=== PATIENT | female | born 1995 | race Caucasian/White ===

== ENCOUNTER → 2019-11-20 | Outpatient (CLI) | payer BC, MEDICAID | LOC: LABNPT 15:43 | PROVIDERS: ATTEND Family Medicine | DX: Z34.90 Encounter for supervision of normal pregnancy, unspecified, unspecified trimester (principal) | CPT/HCPCS: 87088; 87491; 87591 ==

== ENCOUNTER 2019-11-30 09:59 | Emergency (ER) | payer BC, MEDICAID ==
[~2019-11-30] VITALS: Ht 157 cm; Wt 97.4 kg
--- OUTSIDE RECORDS SUMMARY | 2019-11-30 10:08 | XMS REPORT ---
Author Author Tana STACY Organization [facility] Address [address] [place] [address] Care Team Providers Care New Vehicle Sales Consultant Name Role Phone CATRACHITO STACY Unavailable PROBLEMS Type Condition ICD9-CM Code RPT49-GP Code Onset Dates Condition S tatus SNOMED Code Problem Rh negative status during in third tri mester, antepartum O09.893 Nov, Active Problem Body mass index (BMI) of 30.0 to 39.9 E66.9 Active 262212913 Problem Fibrocystic breast changes N60.19 Act leesa 10598584 Problem Obesity (BMI 35.0-39.9 without comorbidity) E66.9 16 Sep, 2014 Active 746760250 Problem Headache(784.0) R51 17 May, 2013 Active 2 5067717 Problem Anxiety F41.9 Active 18855904 Problem Depression, major, single episode, 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 Active 70958689 ALLERGIES Substance Reaction Event Type Date Status Tramadol HCl vomiting Drug Allergy Oct, Active Penicillin G Potassium hives Drug Allergy Oct, Activ e ENCOUNTERS Encounter Location Date Diagnosis [address] [address] Jan, [address] [address] Jan, Obesity (BMI 35.0-39.9 without comorbidi ty) E66.[address] [address] Jan, Obesity (BMI 35.0-39.9 without comorbidi ty) E66.[address] [address] Nov, Body mass index (BMI) of 30.0 to 39.[address] [address] Nov, Body mass index (BMI) of 30.0 to 39.9 E6 6.9 [facility] [address] [facility] [place] [address] Oct, Muscle ache M79.[address] [address] Sep, Body mass index (BMI) of 30.0 to 39.9 E6 6.9 ; Depression, major, single episode, 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 ; Fibrocystic breast changes N60.19 and Anxiety F41.[address] [address] Sep, [facility] [address] [facility] [id number] [address] [place] [phone] Aug, [facility] [address] [facility] [id number] [address] [place] [phone] Aug, [facility] [address] [facility] [id number] [address] [place] [phone] Jul, [facility] [address] [facility] [id number] [address] [place] [phone] Feb, IMMUNIZATIONS No Known Immunizations SOCIAL HISTORY Never Assessed REASON FOR VISIT congestion and drainage that started today.--DEISY Queen PLAN OF CARE Activity Details Follow Up prn Reason: VITAL SIGNS Height 5'3" in 2018-10-15 Weight 220 lbs 2018-10-15 Temperature 98.2 degrees Fahrenheit 2018-10-15 Heart Rate 94 bpm 2018-10-15 Respiratory Rate 20 2018-10-15 BMI 38.97 kg/m2 2018-10-15 Blood pressure systolic 150 mmHg 2018-10-15 Blood pressure diastolic 100 mmHg 2018-10-15 MEDICATIONS Medication Instructions Dosage Frequency Start Date End Date Duration S tatus Klonopin 0.5 MG Orally BID prn 1 tablet at bedtime Sep, 30 days Active Phentermine HCl 37.5 MG Orally Once a day 1 capsule 24h Sep, 30 days Active RESULTS No Results PROCEDURES No Known procedures INSTRUCTIONS MEDICATIONS ADMINISTERED No Known Medications MEDICAL (GENERAL) HISTORY Type Description Date Medical History Depression, major, single episode, compl ete remission Medical History Fibrocystic breast changes Medical History Body mass index (BMI) of 30.0 to 39.9 Hospitalization History childbirth
--- OUTSIDE RECORDS SUMMARY | 2019-11-30 10:08 | XMS REPORT ---
Author Author Tana PORTILLO [facility] Address [address] [place] [address] Care Team Providers Care Sushi Chef Name Role Phone BANDAR KATHERINE Unavailable PROBLEMS Type Condition ICD9-CM Code YPM86-RM Code Onset Dates Condition S tatus SNOMED Code Problem Body mass index (BMI) of 30.0 to 39.9 E66.9 Active 527328221 Problem Fibrocystic breast changes N60.19 Act leesa 93599809 Problem Depression, major, single episode, 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 Active 40998300 ALLERGIES Substance Reaction Event Type Date Status Tramadol HCl vomiting Drug Allergy Sep, Active Penicillin G Potassium hives Drug Allergy Sep, Activ e ENCOUNTERS Encounter Location Date Diagnosis [address] [address] Sep, [address] [address] Sep, IMMUNIZATIONS No Known Immunizations SOCIAL HISTORY Never Assessed REASON FOR VISIT PLAN OF CARE VITAL SIGNS MEDICATIONS Unknown Medications RESULTS No Results PROCEDURES No Known procedures INSTRUCTIONS MEDICATIONS ADMINISTERED No Known Medications MEDICAL (GENERAL) HISTORY Type Description Date Medical History Depression, major, single episode, compl ete remission Medical History Fibrocystic breast changes Medical History Body mass index (BMI) of 30.0 to 39.9
--- OUTSIDE RECORDS SUMMARY | 2019-11-30 10:08 | XMS REPORT | Continuity of Care Document ---
Author Organization Unknown Address Unknown Phone Unavailable Allergies There is no data. Medications There is no data. Problems Date Dx Coded Attending Type Code Diagnosis Diagnosed By 11/21/2019 TULIO ZAMBRANO, IDALIA Donovan Ot Z34.90 ENCNTR FOR SUPRVSN OF NORMAL , Procedures There is no data. Results Test Result Range HCG, QUANTITATIVE - 04/13/19 09:47 HCG, TOTAL, QN 16 mIU/mL NRG CULTURE, URINE - 04/13/19 09:47 CULTURE, URINE, ROUTINE SEE NOTE NRG TEST IN QUESTION- MISLABELED NAME - 01/24 09:47 NAME ON SPECIMEN: NEVIN BANDA NRG TEST ORDERED ON REQ: NO TEST AFFECTED N RG MESSAGE: NRG SPECIMEN TYPE RECEIVED: URINE LOPEZ TOP NRG NAME ON REQUISITION: TANA RICE NR G DATE RECEIVED: 906 NRG COMMENT: NRG COMMENT NRG HCG, QUANTITATIVE - 04/18/19 15:10 HCG, TOTAL, QN 455 mIU/mL NRG SUREPATH PAP RFX HPV mRNA E6/E7 - 10:44 CLINICAL INFORMATION: NRG LMP: NRG PREV. PAP: NRG PREV. BX: NRG SOURCE: Vagina NRG STATEMENT OF ADEQUACY: NRG INTERPRETATION/RESULT: NRG WORKERS COMPENSATION SPECIALIST: NRG COMMENT NRG ANTIBODY SCREEN - 05/02/19 11:44 ANTIBODY SCREEN, RBC W/REFL ID, TITER AND AG NO ANTIBODIES DETECTED NRG CULTURE, URINE - 05/16/19 19:00 CULTURE, URINE, ROUTINE SEE NOTE NRG CULTURE, URINE - 05/31/19 14:02 CULTURE, URINE, ROUTINE SEE NOTE NRG CULTURE, URINE - 06/27/19 15:42 CULTURE, URINE, ROUTINE SEE NOTE NRG QUAD SCREEN - 07/13/19 10:19 Maternal Weight 182 lbs NRG Est'd Date of Delivery 12/23/2019 NRG TRES Determined by LMP NRG Mother's Ethnic Origin NRG Number of Fetuses 1 NRG Insulin Depend Diabetic NO NRG Repeat Specimen NO NRG Hx Of Neural Tube Defects NO NRG Prev Down Synd NO NRG Donor Egg NO NRG Donor Age: Egg Retrieval NOT GIVEN NRG INTERPRETATION: NRG Risk for ONTD <1 IN 5000 NRG Age Risk Down Syndrome 1 IN 1067 NRG ROXANE Down Syndrome Risk 1 IN 1293 NRG ROXANE Trisomy 18 Risk <1 IN 5000 NRG AFP, Serum 20.8 ng/mL NRG AFP MoM 0.66 NRG Estriol, Free 0.56 ng/mL NRG Estriol MoM 0.66 NRG hCG, Serum 36.45 IU/mL NRG hCG MoM 1.37 NRG Inhibin A, Dimeric 128 pg/mL NRG Inhibin A MoM 0.84 NRG COMMENTS: NRG COMMENT NRG Calc'd Gestational Age 16.7 weeks NRG Cigarette smoker NOT GIVEN NRG CULTURE, URINE - 09/04/19 09:51 CULTURE, URINE, ROUTINE SEE NOTE NRG GC/CHLAMYDIA (SWAB OR URINE)-RAPID - 15:36 CHLAMYDIA TRACHOMATIS RNA, TMA NOT DETECTED NOT DETECTED NEISSERIA GONORRHOEAE RNA, TMA NOT DETECTED NOT DETECTED COMMENT NRG GLUCOSE SHIRLENE 1 HOUR - 10/02/19 11:33 GLUCOSE, POSTPRANDIAL/ 1 HOUR 119 mg/dL See Note: CBC w/MANUAL DIFF - 10/02/19 11:33 WHITE BLOOD CELL COUNT 10.0 Thousand/uL 3.8-10.8 RED BLOOD CELL COUNT 4.17 Million/uL 3.8 0-5.10 HEMOGLOBIN 12.4 g/dL 11.7-15.5 HEMATOCRIT 36.0 % 35.0-45.0 MCV 86.3 fL 80.0-100.0 MCH 29.7 pg 27.0-33.0 MCHC 34.4 g/dL 32.0-36.0 RDW 12.2 % 11.0-15.0 PLATELET COUNT 181 Thousand/uL 140-400 MPV 12.0 fL 7.5-12.5 ABSOLUTE NEUTROPHILS 7480 cells/uL 1500- 7800 ABSOLUTE MONOCYTES 200 cells/uL 200-950 ABSOLUTE EOSINOPHILS 0 cells/uL 15-500 ABSOLUTE BASOPHILS 0 cells/uL 0-200 NEUTROPHILS 74.8 % NRG LYMPHOCYTES 22.2 % NRG MONOCYTES 2.0 % NRG EOSINOPHILS 0 % NRG BASOPHILS 0 % NRG ABSOLUTE BAND NEUTROPHILS 100 cells/uL 0 -750 ABSOLUTE LYMPHOCYTES 2220 cells/uL 850-3 900 BAND NEUTROPHILS 1.0 % NRG PLATELET ESTIMATION ADEQUATE ADEQUATE CBC MORPHOLOGY NORMAL COMMENT(S) NRG SYPHILIS (RPR W/ REFLEX CONFIRMATION) - 10/02/19 11:33 RPR (DX) W/REFL TITER AND CONFIRMATORY TESTING NON-REACTIVE NON-REACTIVE Encounters ACCT No. Visit Date/Time Discharge Status Pt. Type Provider Facility Loc./Unit Complaint [id number] 10/02/2019 10:30:00 10/02/2019 23:59: 59 CLS Outpatient SELF, KATHERINE Barney [facility] [id number] 10/02/2019 10:30:00 Document Registration [id number] 09/25/2019 15:15:00 Document Registration [id number] 09/04/2019 10:00:00 Document Registration [id number] 07/13/2019 10:00:00 Document Registration [id number] 06/27/2019 15:00:00 Document Registration [id number] 05/31/2019 13:45:00 Document Registration [id number] 05/16/2019 18:10:00 Document Registration [id number] 05/02/2019 09:45:00 Document Registration [id number] 04/18/2019 15:00:00 Document Registration [id number] 04/13/2019 08:20:00 Document Registration [id number] 11/20/2019 15:43:00 020 23:59:59 CLS Outpatient TULIO ZAMBRANO, IDALIA [facility]
[2019-11-30] MEDS ORDERED: NS IV 1000 ML 1,000 ML IV SCH (10:15)
--- NOTE | 2019-11-30 10:15 | ED Cardiac General ---
History of Present Illness General Chief Complaint: Cardiac/General Problems Stated Complaint: ELEVATED HEART RATE Nursing Triage Note: patient sent here from dr madrid office by pov for elevated HR of 150's in office. States yesterday her vision was blurry and she keeps getting really hot yesterday. Denies any other symptoms. States she thinks she was having anxiety due to her abdominal cramping. Dr Antunez called and stated they did an NST in the office and she was not having contractions and the baby looked "good" Source: patient Exam Limitations: no limitations History of Present Illness Date Seen by Provider: Nov 30, 2019 Time Seen by Provider: 10:14 Initial Comments Presents from PCP's office where she was just seen for her OB appointment today. Noted to have rapid heart rate. Pt denies CP, SOA, Cough, fever, swelling or abdominal pain. Denies feeling of rapid heart rate or palpitations. States Hx of rapid heart rate without Hx heart problems. Denies Hx anemia or Hx thyroid disorder. Allergies and Home Medications Allergies Coded Allergies: Penicillins (Verified Allergy, Unknown, rash , 11/30/19) Patient Home Medication List Home Medication List Reviewed: Yes Review of Systems Review of Systems Constitutional: see HPI; No chills, No diaphoresis, No dizziness, No fever, No malaise, No weakness Respiratory: Denies Cough, Denies Shortness of Air Cardiovascular: See HPI; Denies Chest Pain, Denies Edema, Denies Irregular Heart Rate, Denies Lightheadedness, Denies Palpitations, Denies Syncope Gastrointestinal: Denies Abdominal Pain, Denies Constipated, Denies Diarrhea, Denies Nausea, Denies Poor Appetite, Denies Poor Fluid Intake, Denies Rectal Bleeding, Denies Vomiting Musculoskeletal: No back pain, No joint pain, No neck pain Skin: No change in color, No lesions, No lumps, No rash Psychiatric/Neurological: Anxiety; Denies Headache, Denies Numbness, Denies Paresthesia, Denies Seizure, Denies Weakness Past Cjwynzz-Ljjgqt-Xshhgv Hx Past Med/Social Hx: Reviewed Nursing Past Med/Soc Hx Patient Social History Alcohol Use: Denies Use Recreational Drug Use: No Smoking Status: Never a Smoker 2nd Hand Smoke Exposure: No Recent Foreign Travel: No Contact w/Someone Who Travel: No Recent Infectious Disease Expo: No Recent Hopitalizations: No Seasonal Allergies Seasonal Allergies: No Past Medical History Surgeries: No Respiratory: No Cardiac: No Neurological: No Genitourinary: No Gastrointestinal: No Musculoskeletal: No Endocrine: No HEENT: No Cancer: No Psychosocial: No Integumentary: No Blood Disorders: No Adverse Reaction/Blood Tranf: No Physical Exam Vital Signs Vital Signs - First Documented 11/30/19 10:04 Temp 36.4 Pulse 120 Resp 16 B/P (MAP) 136/92 (107) Pulse Ox 97 Capillary Refill : Less Than 3 Seconds Height, Weight, BMI Height: '" Weight: lbs. oz. kg; 39.00 BMI Method: General Appearance: No Apparent Distress, WD/WN HEENT: PERRL/EOMI, Normal ENT Inspection Neck: Non Tender, Supple Respiratory: Chest Non Tender, Lungs Clear Cardiovascular: No Edema, No Gallop, No JVD, Normal Peripheral Pulses, Tachycardia Gastrointestinal: Non Tender, Soft; No Distended, No Guarding, No Hepatomegaly, No Hernia; Other (sizw cwd) Extremity: Normal Capillary Refill, Normal Inspection, Non Tender, No Calf Tenderness Neurologic/Psychiatric: Alert, Oriented x3, No Motor/Sensory Deficits, Normal Mood/Affect Skin: Normal Color, Warm/Dry Progress/Results/Core Measures Results/Orders Lab Results Laboratory Tests Test 11/30/19 10:18 11/30/19 10:59 Range/Units White Blood Count 7.3 4.3-11.0 10^3/uL Red Blood Count 4.32 L 4.35-5.85 10^6/uL Hemoglobin 11.8 11.5-16.0 G/DL Hematocrit 35 35-52 % Mean Corpuscular Volume 82 80-99 FL Mean Corpuscular Hemoglobin 27 25-34 PG Mean Corpuscular Hemoglobin Concent 33 32-36 G/DL Red Cell Distribution Width 13.3 10.0-14.5 % Platelet Count 178 130-400 10^3/uL Mean Platelet Volume 12.3 H 7.4-10.4 FL Neutrophils (%) (Auto) 71 42-75 % Lymphocytes (%) (Auto) 22 12-44 % Monocytes (%) (Auto) 7 0-12 % Eosinophils (%) (Auto) 0 0-10 % Basophils (%) (Auto) 0 0-10 % Neutrophils # (Auto) 5.2 1.8-7.8 X 10^3 Lymphocytes # (Auto) 1.6 1.0-4.0 X 10^3 Monocytes # (Auto) 0.5 0.0-1.0 X 10^3 Eosinophils # (Auto) 0.0 0.0-0.3 10^3/uL Basophils # (Auto) 0.0 0.0-0.1 10^3/uL Sodium Level 135 135-145 MMOL/L Potassium Level 3.9 3.6-5.0 MMOL/L Chloride Level 103 98-107 MMOL/L Carbon Dioxide Level 21 21-32 MMOL/L Anion Gap 11 5-14 MMOL/L Blood Urea Nitrogen 8 7-18 MG/DL Creatinine 0.52 L 0.60-1.30 MG/DL Estimat Glomerular Filtration Rate > 60 BUN/Creatinine Ratio 15 Glucose Level 134 H 70-105 MG/DL Calcium Level 9.0 8.5-10.1 MG/DL Corrected Calcium 9.5 8.5-10.1 MG/DL Total Bilirubin 0.6 0.1-1.0 MG/DL Aspartate Amino Transf (AST/SGOT) 11 5-34 U/L Alanine Aminotransferase (ALT/SGPT) 6 0-55 U/L Alkaline Phosphatase 72 40-136 U/L Total Protein 6.1 L 6.4-8.2 GM/DL Albumin 3.4 3.2-4.5 GM/DL Urine Color YELLOW Urine Clarity SL CLOUDY Urine pH 7.0 5-9 Urine Specific [place] 1.020 1.016-1.022 Urine Protein NEGATIVE NEGATIVE Urine Glucose (UA) NEGATIVE NEGATIVE Urine Ketones NEGATIVE NEGATIVE Urine Nitrite NEGATIVE NEGATIVE Urine Bilirubin NEGATIVE NEGATIVE Urine Urobilinogen 0.2 < = 1.0 MG/DL Urine Leukocyte Esterase 1+ H NEGATIVE Urine RBC (Auto) NEGATIVE NEGATIVE Urine RBC 0-2 /HPF Urine WBC 25-50 H /HPF Urine Squamous Epithelial Cells 10-25 H /HPF Urine Crystals NONE /LPF Urine Bacteria NEGATIVE /HPF Urine Casts NONE /LPF Urine Mucus SMALL H /LPF Urine Culture Indicated YES My Orders Orders - ALISHASTJOYA RHODES DO Ed Iv/Invasive Line Start (11/30/19 10:12) Cbc With Automated Diff (11/30/19 10:12) Comprehensive Metabolic Panel (11/30/19 10:12) Urinalysis (11/30/19 10:12) Ekg Tracing (11/30/19 10:12) Ns Iv 1000 Ml (Sodium Chloride 0.9%) (11/30/19 10:15) Urine Culture (11/30/19 10:59) Vital Signs/I&O 11/30/19 11/30/19 10:04 11:22 Temp 36.4 Pulse 120 105 Resp 16 16 B/P (MAP) 136/92 (107) 125/74 Pulse Ox 97 97 Blood Pressure Mean: 107 Progress Progress Note : Progress Note Patient asymptomatic without CP or soa. Denies palpitations or rapid heart rate. HR improved somewhat w [address] Antunez to notify of labs and disposition. Will see pt for OB follow-up next wk. Initial ECG Impression Time: 10:05 Initial ECG Rhythm: S.Tach Initial ECG Intervals: Normal Initial ECG Impression: Normal Initial ECG Comparisson: No Previous ECG Available Departure Impression Primary Impression: Sinus tachycardia Additional Impression: Qualified Codes: Z34.90 - Encounter for supervision of normal , unspecified, unspecified trimester Disposition: 01 HOME, SELF-CARE Condition: Improved Departure-Patient Inst. Referrals: IDALIA ANTUNEZ MD (PCP/Family) Primary Care Physician Patient Instructions: Sinus Tachycardia (DC), Taking in Enough Fluids While You are Add. Discharge Instructions: Call Dr Antunez's office to schedule a follow up appointment in 3 to 5 days All discharge instructions reviewed with patient and/or family. Voiced understanding. JOYA SILVA DO Nov 30, 2019 10:15
[2019-11-30 10:56] LABS: BASOPHILS % (AUTO) 0 % (0-10); EOSINOPHILS % (AUTO) 0 % (0-10); HEMATOCRIT 35 % (35-52); HEMOGLOBIN 11.8 G/DL (11.5-16.0); LYMPHOCYTES # (AUTO) 1.6 X 10^3 (1.0-4.0); LYMPHOCYTES % (AUTO) 22 % (12-44); MEAN CORPUSCULAR HEMOGLOBIN 27 PG (25-34); MEAN CORPUSCULAR HGB CONC 33 G/DL (32-36); MEAN CORPUSCULAR VOLUME 82 FL (80-99); MEAN PLATELET VOLUME 12.3 FL (7.4-10.4); MONOCYTES # (AUTO) 0.5 X 10^3 (0.0-1.0); MONOCYTES % (AUTO) 7 % (0-12); NEUTROPHILS # (AUTO) 5.2 X 10^3 (1.8-7.8); NEUTROPHILS % (AUTO) 71 % (42-75); PLATELET COUNT 178 10^3/uL (130-400); RED CELL DISTRIBUTION WIDTH 13.3 % (10.0-14.5); WHITE BLOOD COUNT 7.3 10^3/uL (4.3-11.0)
[2019-11-30 11:09] LABS: ALANINE AMINOTRANSFERASE 6 U/L (0-55); ALBUMIN 3.4 GM/DL (3.2-4.5); ALKALINE PHOSPHATASE 72 U/L (40-136); BILIRUBIN,TOTAL 0.6 MG/DL (0.1-1.0); BUN/CREATININE RATIO 15; CARBON DIOXIDE 21 MMOL/L (21-32); CHLORIDE 103 MMOL/L (98-107); CREATININE SERUM 0.52 MG/DL (0.60-1.30); GFR ESTIMATED > 60; GLUCOSE 134 MG/DL (70-105); POTASSIUM 3.9 MMOL/L (3.6-5.0); SODIUM 135 MMOL/L (135-145); TOTAL PROTEIN 6.1 GM/DL (6.4-8.2)
[2019-11-30 11:22] VITALS: BP 125/74
[2019-11-30 11:33] LABS: BACTERIA,URINE NEGATIVE /HPF; CLARITY,URINE SL CLOUDY; COLOR,URINE YELLOW; GLUCOSE, URINE (UA) NEGATIVE (NEGATIVE); KETONES,URINE NEGATIVE (NEGATIVE); LEUKOCYTE ESTERASE ,URINE 1+ (NEGATIVE); NITRITE,URINE NEGATIVE (NEGATIVE); PROTEIN,URINE NEGATIVE (NEGATIVE); RBC,URINE 0-2 /HPF; WBC,URINE 25-50 /HPF
[2019-11-30 11:34] LABS: BILIRUBIN,URINE NEGATIVE (NEGATIVE)
== END 2019-11-30 11:24 | disposition home or self-care (01) ==
LOC: EDUNIT# 09:59 → ER FS 10:01
DX: O26.899 Other specified pregnancy related conditions, unspecified trimester (principal); R00.0 Tachycardia, unspecified; Z3A.00 Weeks of gestation of pregnancy not specified; Z88.0 Allergy status to penicillin
CPT/HCPCS: 36415; 80053; 81000; 85025; 87088; 93005

== ENCOUNTER 2019-12-14 21:38 | Inpatient (IN) | payer BC, MEDICAID ==
[~2019-12-14] VITALS: Ht 157.5 cm; Wt 99.6 kg
--- NOTE | 2019-12-14 21:45 | NUR ---
SEVERO RICE presented to unit via from ED, accompanied by mother, with c/o WATER BROKe 38 12/12. SEVERO RICE weighed, gowned, voided, and to bed. EFHM and TOCO applied, VS taken. SEVERO RICE oriented to bed controls, call light, TV, heat, and A/C controls.
[2019-12-14 21:50] VITALS: BP 132/75
[2019-12-14 22:06] LABS: BILIRUBIN,URINE NEGATIVE (NEGATIVE); CLARITY,URINE CLEAR; COLOR,URINE YELLOW; GLUCOSE, URINE (UA) NEGATIVE (NEGATIVE); KETONES,URINE 2+ (NEGATIVE); LEUKOCYTE ESTERASE ,URINE NEGATIVE (NEGATIVE); NITRITE,URINE NEGATIVE (NEGATIVE); PH,URINE 6.5 (5-9); PROTEIN,URINE NEGATIVE (NEGATIVE)
[2019-12-14 22:15] VITALS: BP 132/75
[2019-12-14 22:16] LABS: BACTERIA,URINE TRACE /HPF
[2019-12-14 22:35] VITALS: BP 133/65
[2019-12-15] VITALS (63 sets, daily range): BP systolic 97–167; BP diastolic 52–93
[2019-12-15] MEDS: D5 LR IV SOLUTION 1,000 ML IV SCH ×3 (00:05→16:30)
[2019-12-15] MEDS ORDERED: D5 LR IV SOLUTION 1,000 ML IV ONE (00:36)
--- NOTE | 2019-12-15 00:45 | NUR ---
Pt put professional driver light expressing concerns about plan of care. Pt states that she would like to just be observed overnight and rechecked at 0600. If no change pt would like to discharge home
[2019-12-15] MEDS ORDERED: ACETAMINOPHEN 500 MG TAB (TYLENOL) PO ONE (01:15)
--- OUTSIDE RECORDS SUMMARY | 2019-12-15 01:52 | XMS REPORT | Continuity of Care Document ---
Author Organization Unknown Address Unknown Phone Unavailable Allergies Active Description Code Type Severity Reaction Onset Reported/Identified Relationship to Patient Clinical Status Yes Penicillins [id number] Drug Aller gy Unknown rash 11/30/2019 Medications There is no data. Problems Date Dx Coded Attending Type Code Diagnosis Diagnosed By 11/21/2019 TULIO ZAMBRANO, IDALIA Donovan Ot Z34.90 ENCNTR FOR SUPRVSN OF NORMAL , 11/30/2019 ROVENSTINE DO, JOYA L Ot O26.899 OTH RELATED CONDITIONS, UNSPEC 11/30/2019 ROVENSTINE DO, JOYA L Ot R00.0 TACHYCARDIA, UNSPECIFIED 11/30/2019 ROVENSTINE DO, JOYA L Ot Z3A.00 WEEKS OF GESTATION OF NOT SPEC 11/30/2019 ROVENSTINE DO, JOYA L Ot Z88.0 ALLERGY STATUS TO PENICILLIN 11/30/2019 IDALIA ANTUNEZ MD Ot Z34.90 ENCNTR FOR SUPRVSN OF NORMAL , 11/30/2019 IDALIA ANTUNEZ MD Ot Z34.90 ENCNTR FOR SUPRVSN OF NORMAL , 12/03/2019 ROVENSTINE DO, JOYA L Ot O26.899 OTH RELATED CONDITIONS, UNSPEC 12/03/2019 ROVENSTINE DO, JOYA L Ot R00.0 TACHYCARDIA, UNSPECIFIED 12/03/2019 ROVENSTINE DO, JOYA L Ot Z3A.00 WEEKS OF GESTATION OF NOT SPEC 12/03/2019 ROVENSTINE DO, JOYA L Ot Z88.0 ALLERGY STATUS TO PENICILLIN 12/03/2019 IDALIA ANTUNEZ MD Ot Z34.90 ENCNTR FOR SUPRVSN OF NORMAL , 12/05/2019 IDALIA ANTUNEZ MD Ot Z34.90 ENCNTR FOR SUPRVSN OF NORMAL , 12/07/2019 ROVENSTINE DO, JOYA L Ot O26.899 OTH RELATED CONDITIONS, UNSPEC 12/07/2019 ROVENSTJOYA RHODES DO Ot R00.0 TACHYCARDIA, UNSPECIFIED 12/07/2019 ROVENSTINE DO JOYA Jesi Ot Z3A.00 WEEKS OF GESTATION OF NOT SPEC 12/07/2019 ALISHASTMEAGAN LUJAN JOYA Jesi Ot Z88.0 ALLERGY STATUS TO PENICILLIN 12/11/2019 TULIO ZAMBRANO, IDALIA Donovan Ot Z34.90 ENCNTR FOR SUPRVSN OF NORMAL , 12/14/2019 IDALIA ANTUNEZ MD Ot Z34.90 ENCNTR FOR SUPRVSN OF NORMAL , 12/14/2019 TULIO ZAMBRANO, IDALIA Donovan Ot Z34.90 ENCNTR [...] NRG STATEMENT OF ADEQUACY: NRG INTERPRETATION/RESULT: NRG DIRECTOR BUSINESS DEVELOPMENT: NRG COMMENT NRG ANTIBODY SCREEN - 05/02/19 [...] W/REFL TITER AND CONFIRMATORY TESTING NON-REACTIVE NON-REACTIVE Complete blood count (CBC) with automate d white blood cell (WBC) differential - 11/30/19 10:18 Blood leukocytes automated count (number/volume) 7.3 10*3/uL 4.3-11.0 Blood erythrocytes automated count (number/volume) 4.32 10*6/uL 4.35-5.85 Venous blood hemoglobin measurement (mass/volume) 11.8 g/dL 11.5-16.0 Blood hematocrit (volume fraction) 35 % 35-52 Automated erythrocyte mean corpuscular volume 82 [ foz_us] 80-99 Automated erythrocyte mean corpuscular h emoglobin (mass per erythrocyte) 27 pg 25-34 Automated erythrocyte mean corpuscular h emoglobin concentration measurement (mass/volume) 33 g/dL 32-36 Automated erythrocyte distribution width ratio 13. 3 % 10.0- 14.5 Automated blood platelet count (count/volume) 178 10*3/uL 130-400 Automated blood platelet mean volume measurement 12.3 [foz_us] 7.4-10.4 Automated blood neutrophils/100 leukocytes 71 % 42-75 Automated blood lymphocytes/100 leukocytes 22 % 12-44 Blood monocytes/100 leukocytes 7 % 0-12 Automated blood eosinophils/100 leukocytes 0 % 0-10 Automated blood basophils/100 leukocytes 0 % 0-10 Blood neutrophils automated count (number/volume) 5.2 10*3 1.8-7.8 Blood lymphocytes automated count (number/volume) 1.6 10*3 1.0-4.0 Blood monocytes automated count (number/volume) 0. 5 10*3 0.0-1.0 Automated eosinophil count 0.0 10*3/uL 0 .0-0.3 Automated blood basophil count (count/volume) 0.0 10*3/uL 0.0-0.1 Comprehensive metabolic panel - 11/30/19 10:18 Serum or plasma sodium measurement (moles/volume) 135 mmol/L 135-145 Serum or plasma potassium measurement (moles/volume) 3.9 mmol/L 3.6-5.0 Serum or plasma chloride measurement (moles/volume) 103 mmol/L 98-107 Carbon dioxide 21 mmol/L 21-32 Serum or plasma anion gap determination (moles/volume) 11 mmol/L 5-14 Serum or plasma urea nitrogen measurement (mass/volume ) 8 mg/dL 7-18 Serum or plasma creatinine measurement (mass/volume) 0.52 mg/dL 0.60-1.30 Serum or plasma urea nitrogen/creatinine mass ratio 15 NRG Serum or plasma creatinine measurement w ith calculation of estimated glomerular filtration rate > NRG Serum or plasma glucose measurement (mass/volume) 134 mg/dL 70-105 Serum or plasma calcium measurement (mass/volume) 9.0 mg/dL 8.5-10.1 Serum or plasma total bilirubin measurement (mass/volu me) 0.6 mg/dL 0.1-1.0 Serum or plasma alkaline phosphatase [place] surement (enzymatic activity/volume) 72 U/L 40-136 Serum or plasma aspartate aminotransfera se measurement (enzymatic activity/volume) 11 U/L 5-34 Serum or plasma alanine aminotransferase measurement (enzymatic activity/volume) 6 U/L 0-55 Serum or plasma protein measurement (mass/volume) 6.1 g/dL 6.4-8.2 Serum or plasma albumin measurement (mass/volume) 3.4 g/dL 3.2-4.5 CALCIUM CORRECTED 9.5 mg/dL 8.5-10.1 Complete urinalysis with reflex to cultu re - 11/30/19 10:59 Urine color determination YELLOW NRG Urine clarity determination SL CLOUDY N RG Urine pH measurement by test strip 7.0 5-9 Specific gravity of urine by test strip 1.020 1.016-1.022 Urine protein assay by test strip, semi-quantitative NEGATIVE NEGATIVE Urine glucose detection by automated test strip NE GATIVE NEGATIVE Erythrocytes detection in urine sediment by light micr oscopy NEGATIVE NEGATIVE Urine ketones detection by automated test strip NE GATIVE NEGATIVE Urine nitrite detection by test strip NEGATIVE NEGATIVE Urine total bilirubin detection by test strip NEGA TIVE NEGATIVE Urine urobilinogen measurement by automated test strip (mass/volume) 0.2 mg/dL < = 1.0 Urine leukocyte esterase detection by dipstick 1+ NEGATIVE Automated urine sediment erythrocyte cou nt by microscopy (number/high power field) [HPF] NRG Automated urine sediment leukocyte count by microscopy (number/high power field) [HPF] NRG Bacteria detection in urine sediment by light microsco py NEGATIVE NRG Squamous epithelial cells detection in u rine sediment by light microscopy 10-25 NRG Crystals detection in urine sediment by light microsco py NONE NRG Casts detection in urine sediment by light microscopy NONE NRG Mucus detection in urine sediment by light microscopy SMALL NRG Complete urinalysis with reflex to culture YES NRG Bacterial urine culture - 11/30/19 10:59 Bacterial urine culture 3 OR MORE NRG COLONY COUNT >100,000/ML NRG SUSCEPTIBILITY (GRAM POSITIVE) SUGGESTING PROBABLE NRG MRSA SCREEN COLLECTION CONTAMINATION WITH SKIN BRANDY RA NRG RAPID ID NO SUSCEPTIBILITY PERFORMED N RG Complete urinalysis with reflex to cultu re - 12/14/19 22:00 Urine color determination YELLOW NRG Urine clarity determination CLEAR NR G Urine pH measurement by test strip 6.5 5-9 Specific gravity of urine by test strip >= 1.016-1.022 Urine protein assay by test strip, semi-quantitative NEGATIVE NEGATIVE Urine glucose detection by automated test strip NE GATIVE NEGATIVE Erythrocytes detection in urine sediment by light micr oscopy NEGATIVE NEGATIVE Urine ketones detection by automated test strip 2+ NEGATIVE Urine nitrite detection by test strip NEGATIVE NEGATIVE Urine total bilirubin detection by test strip NEGA TIVE NEGATIVE Urine urobilinogen measurement by automated test strip (mass/volume) 1.0 mg/dL < = 1.0 Urine leukocyte esterase detection by dipstick NEG ATIVE NEGATIVE Automated urine sediment erythrocyte cou nt by microscopy (number/high power field) NONE NRG Automated urine sediment leukocyte count by microscopy (number/high power field) [HPF] NRG Bacteria detection in urine sediment by light microsco py TRACE NRG Squamous epithelial cells detection in u rine sediment by light microscopy 2-5 NRG Crystals detection in urine sediment by light microsco py NONE NRG Casts detection in urine sediment by light microscopy NONE NRG Mucus detection in urine sediment by light microscopy MODERATE NRG Complete urinalysis with reflex to culture NO NRG Encounters ACCT No. Visit Date/Time Discharge Status Pt. Type Provider Facility Loc./Unit Complaint [id number] 10/02/2019 10:30:00 10/02/2019 23:59: 59 CLS Outpatient SELF, KATHERINE Barney [facility] [id number] 10/02/2019 10:30:00 Document Registration [id number] 09/25/2019 15:15:00 Document Registration [id number] 09/04/2019 10:00:00 Document Registration [id number] 07/13/2019 10:00:00 Document Registration [id number] 06/27/2019 15:00:00 Document Registration [id number] 05/31/2019 13:45:00 Document Registration [id number] 05/16/2019 18:10:00 Document Registration [id number] 05/02/2019 09:45:00 Document Registration [id number] 04/18/2019 15:00:00 Document Registration [id number] 04/13/2019 08:20:00 Document Registration [id number] 11/30/2019 10:01:00 11:24:00 DIS Emergency SHIRA DOJOYA [facility] ER FS ELEVATED HEART RATE [id number] 11/20/2019 15:43:00 020 23:59:59 CLS Outpatient IDALIA ANTUNEZ MD [facility] LABNPT [id number] 12/18/2019 06:00:00 P EN Preadmit TULIO ZAMBRANO, IDALIA Donovan INDUCTION [id number] 12/14/2019 21:38:[address] Outpatient LAINA ZAMBRANO, TAMAR Talamantes [facility]
[2019-12-15 02:20] LABS: BASOPHILS % (AUTO) 0 % (0-10); EOSINOPHILS % (AUTO) 0 % (0-10); HEMATOCRIT 37 % (35-52); HEMOGLOBIN 12.4 G/DL (11.5-16.0); LYMPHOCYTES # (AUTO) 2.2 X 10^3 (1.0-4.0); LYMPHOCYTES % (AUTO) 17 % (12-44); MEAN CORPUSCULAR HEMOGLOBIN 27 PG (25-34); MEAN CORPUSCULAR HGB CONC 33 G/DL (32-36); MEAN CORPUSCULAR VOLUME 82 FL (80-99); MEAN PLATELET VOLUME 13.1 FL (7.4-10.4); MONOCYTES # (AUTO) 1.2 X 10^3 (0.0-1.0); MONOCYTES % (AUTO) 9 % (0-12); NEUTROPHILS # (AUTO) 9.6 X 10^3 (1.8-7.8); NEUTROPHILS % (AUTO) 74 % (42-75); PLATELET COUNT 176 10^3/uL (130-400); RED CELL DISTRIBUTION WIDTH 13.9 % (10.0-14.5); WHITE BLOOD COUNT 13.1 10^3/uL (4.3-11.0)
[2019-12-15] MEDS ORDERED: CALCIUM CARBONATE 500 MG (TUMS) TAB.CHEW PO PRN (02:45)
[2019-12-15] MEDS ORDERED: OXYTOCIN PRE-MIX DRIP 500 ML IV ONE (05:52)
[2019-12-15] MEDS ORDERED: OXYTOCIN PRE-MIX DRIP 500 ML IV SCH ×2 (06:03→19:46)
[2019-12-15] MEDS ORDERED: fentaNYL 2 mcg/ml BUPIVA 0.125 100 ML ONE (08:11)
[2019-12-15] MEDS ORDERED: fentaNYL INJECTION 100 MCG/2 ML AMP ONE ×3 (08:22→17:35)
[2019-12-15] MEDS ORDERED: BUPIVACAINE 0.25% 30 ML (SENSORCAINE) VIAL ONE (08:22)
[2019-12-15] MEDS: EPIDURAL (fentaNYL 2 MCG/ML BUPIVA 0.125%)100 ML BAG EPI PRN ×2 (09:09→15:35)
[2019-12-15] MEDS ORDERED: LACTATED RINGERS 1,000 ML IV SCH (09:31)
[2019-12-15] MEDS ORDERED: diphenhydrAMINE 50 MG/ML INJ (BENADRYL) IV PRN (09:45)
[2019-12-15] MEDS ORDERED: NALOXONE 0.4 MG/ML 1 ML (NARCAN) VIAL IV PRN ×2 (09:45)
[2019-12-15] MEDS ORDERED: ONDANSETRON 4 MG/2 ML (SDV) Z0FRAN IV PRN (09:45)
[2019-12-15] MEDS ORDERED: METOCLOPRAMIDE INJ 10 MG/2 ML (REGLAN) IV PRN (09:45)
[2019-12-15] MEDS ORDERED: LIDOCAINE PF 2% 5 ML (XYLOCAINE) VIAL ONE ×2 (11:50→17:58)
[2019-12-15] MEDS ORDERED: BUPIVACAINE 0.5% 30 ML (SENSORCAINE) VIAL ONE (11:50)
--- NOTE | 2019-12-15 12:39 | History & Physical-OB ---
OB - Chief Complaint & HPI Date/Time Date of Admission: Date of Admission: December 15, 2019 at 00:26 Date seen by a Provider: December 15, 2019 Time Seen by a Provider: 12:15 Chief Complaint/History OB-Reason for Admission/Chief: Onset of Labor Hx : 2 Hx Para: 1 Expected Date of Delivery: December 23, 2019 Gestational Age in Weeks: 39 Gestational Age in Days: 0 Admission Nurse Assessment Rev: Yes Allergies and Home Medications Allergies Coded Allergies: Penicillins (Verified Allergy, Unknown, rash , 11/30/19) Patient Home Medication List Home Medication List Reviewed: Yes OB - History Hx of Present Care: Yes Ultrasounds: Normal mid trimester US Obstetrical Complications: None Medical Complications: None Obstetrical History Hx : 2 Hx Para: 1 Delivery History Adverse Rxn to Tranfusion: No Patient Past Medical History previously healthy Social History/Family History Recent Infectious Disease Expo: No Alcohol Use: Denies Use Recreational Drug Use: No 2nd Hand Smoke Exposure: No OB - Admission Exam Physical Exam Vitals: Vital Signs 12/15/19 12/15/19 09:03 10:45 Temp 36.6 Pulse 83 Resp 18 B/P (MAP) 114/57 (76) Pulse Ox 100 O2 Delivery Room Air HEENT: NCAT Heart: Rhythm Normal Lungs: Clear Abdomen: Gravid Extremities: Normal Reflexes: Normal Cervical Dilatation: 7cm Effacement: 50% Station: -3 Membranes: Intact Heart Rate: 130's Accelerations: Accelerations Present Decelerations: Early Decelerations Short Term Variability: Present Mcfp Variability: Average (6-25) Contractions on Admission: < 5 Minutes Apart Labs Laboratory Tests Test 12/14/19 22:00 12/15/19 00:05 Range/Units Urine Color YELLOW Urine Clarity CLEAR Urine pH 6.5 5-9 Urine Specific [place] >=1.030 1.016-1.022 Urine Protein NEGATIVE NEGATIVE Urine Glucose (UA) NEGATIVE NEGATIVE Urine Ketones 2+ H NEGATIVE Urine Nitrite NEGATIVE NEGATIVE Urine Bilirubin NEGATIVE NEGATIVE Urine Urobilinogen 1.0 < = 1.0 MG/DL Urine Leukocyte Esterase NEGATIVE NEGATIVE Urine RBC (Auto) NEGATIVE NEGATIVE Urine RBC NONE /HPF Urine WBC 2-5 /HPF Urine Squamous Epithelial Cells 2-5 /HPF Urine Crystals NONE /LPF Urine Bacteria TRACE /HPF Urine Casts NONE /LPF Urine Mucus MODERATE H /LPF Urine Culture Indicated NO White Blood Count 13.1 H 4.3-11.0 10^3/uL Red Blood Count 4.53 4.35-5.85 10^6/uL Hemoglobin 12.4 11.5-16.0 G/DL Hematocrit 37 35-52 % Mean Corpuscular Volume 82 80-99 FL Mean Corpuscular Hemoglobin 27 25-34 PG Mean Corpuscular Hemoglobin Concent 33 32-36 G/DL Red Cell Distribution Width 13.9 10.0-14.5 % Platelet Count 176 130-400 10^3/uL Mean Platelet Volume 13.1 H 7.4-10.4 FL Neutrophils (%) (Auto) 74 42-75 % Lymphocytes (%) (Auto) 17 12-44 % Monocytes (%) (Auto) 9 0-12 % Eosinophils (%) (Auto) 0 0-10 % Basophils (%) (Auto) 0 0-10 % Neutrophils # (Auto) 9.6 H 1.8-7.8 X 10^3 Lymphocytes # (Auto) 2.2 1.0-4.0 X 10^3 Monocytes # (Auto) 1.2 H 0.0-1.0 X 10^3 Eosinophils # (Auto) 0.0 0.0-0.3 10^3/uL Basophils # (Auto) 0.0 0.0-0.1 10^3/uL OB - Assessment/Plan/Diagnosis Assessment Assessment: active labor Admission Dx Active labor at 39 0/7 wga. Admission Status: Inpatient Order (span 2 midnights) Reason for Inpatient Admission: Labor at 39 0/7 wga. Plan Plan: Expectant Management Other Plan Augmentation with pitocin. AROM clear fluid large amount. Position changes with FSE. GBS negative. Epidural for pain. IDALIA ANTUNEZ MD December 15, 2019 12:39
[2019-12-15] MEDS ORDERED: fentaNYL INJECTION 100 MCG/2 ML AMP IVP NR (16:00)
[2019-12-15] MEDS ORDERED: MINERAL OIL CONCENTRATE 99.9% 15 ML UDC ONE (19:07)
[2019-12-15] MEDS ORDERED: LIDOCAINE 1% INJ 20 ML 20 ML VIAL ONE (19:22)
--- NOTE | 2019-12-15 19:46 | OB Labor & Delivery Record ---
Vag Delivery Note Vag Delivery Note Date of Delivery: 12/15/19 Preoperative Diagnosis: Tana Barrett is a (24 /Para 2 / 1, Gestational Age (wks)39with [] Postoperative Diagnosis: Same Surgeon: IDALIA ANTUNEZ Market Master: [none] Anesthesia: [epidural] Delivery Type: [] Findings: [] Viable [male] infant, apgars [8/9], weight [7 pounds 0 ounces] Lacerations: Intact placenta with 3 vessel cord. Estimated Blood Loss: [300] ml Complications: None Condition: Stable Description of Procedure: The patient is a 24 year old female who presented [in labor]. She was admitted and informed consent was obtained. Her labor course was remarkable for [hand presentation and OP persistent until delivery] She progressed to complete dilatation and began to push. She was then set up for delivery. The infant's head was delivered atraumatically in the [OA] position. The shoulders and remainder of the 's body were then delivered without difficulty. Upon delivery, the head was held below the level of the perineum and the mouth and nares were bulb suctioned. The cord was doubly clamped and cut on maternal abdomen by grandmother of baby after 60 seconds. An intact placenta with 3-vessel cord delivered via Jose Alejandro and there was found to be minimal bleeding.~ Vigorous fundal massage was performed and the fundus was found to be firm. IV oxytocin was given. Examination of the vagina and perineum revealed a [perineal 2nd degree and clitoral] laceration repaired in the usual fashion with 3-0 vicryl suture. Following the repair, sponge, instrument and needle counts were correct. Mom and baby were both in stable condition in the labor suite. Vitals - Labs Vital Signs - I&O Vital Signs Date Time Temp Pulse Resp B/P (MAP) Pulse Ox O2 Delivery O2 Flow Rate FiO2 12/15/19 19:00 103 18 146/72 (96) Room Air 12/15/19 18:45 88 18 147/73 (97) Room Air 12/15/19 18:30 95 18 149/72 (97) Room Air 12/15/19 18:15 105 18 146/68 (94) Room Air 12/15/19 18:00 36.6 116 18 149/79 (102) Room Air 12/15/19 17:45 18 Room Air 12/15/19 17:30 111 18 141/64 (89) Room Air 12/15/19 17:10 107 18 130/93 (105) Room Air 12/15/19 17:00 18 Room Air 12/15/19 16:50 112 18 126/69 (88) Room Air 12/15/19 16:40 112 18 121/70 (87) Room Air 12/15/19 16:30 18 Room Air 12/15/19 16:20 91 18 138/78 (98) Room Air 12/15/19 16:10 102 18 143/65 (91) Room Air 12/15/19 16:00 103 18 134/73 (93) Room Air 12/15/19 15:50 37.1 106 18 140/85 (103) Room Air 12/15/19 15:40 110 18 134/52 (79) Room Air 12/15/19 15:30 109 18 145/78 (100) Room Air 12/15/19 15:15 106 18 139/72 (94) Room Air 12/15/19 15:00 37.4 113 18 131/60 (83) Room Air 12/15/19 14:45 120 18 141/88 (105) Room Air 12/15/19 14:30 18 Room Air 12/15/19 14:15 37.1 133 18 141/64 (89) Room Air 12/15/19 14:00 90 18 114/56 (75) Room Air 12/15/19 13:45 104 18 128/59 (82) Room Air 12/15/19 13:30 36.8 85 18 131/60 (83) Room Air 12/15/19 13:15 92 18 124/70 (88) Room Air 12/15/19 13:00 93 18 120/63 (82) Room Air 12/15/19 12:45 93 18 146/85 (105) Room Air 12/15/19 12:30 36.7 97 18 142/77 (98) Room Air 12/15/19 12:15 89 18 121/76 (91) Room Air 12/15/19 12:00 94 18 124/78 (93) Room Air 12/15/19 11:45 85 18 118/76 (90) Room Air 12/15/19 11:30 86 18 125/74 (91) Room Air 12/15/19 11:15 86 18 122/71 (88) Room Air 12/15/19 11:00 110 18 97/63 (74) Room Air 12/15/19 10:45 36.6 83 18 114/57 (76) Room Air 12/15/19 10:30 Room Air 12/15/19 10:15 94 18 123/73 (90) Room Air 12/15/19 10:00 Room Air 12/15/19 09:45 36.4 97 18 130/63 (85) Room Air 12/15/19 09:30 99 18 133/62 (85) Room Air 12/15/19 09:15 100 18 124/78 (93) Room Air 12/15/19 09:03 107 18 117/69 (85) 100 Room Air 12/15/19 09:00 106 18 130/76 (94) 100 Room Air 12/15/19 08:59 114 18 118/70 (86) 99 Room Air 12/15/19 08:58 118 18 125/89 (101) 99 Room Air 12/15/19 08:50 99 18 122/69 (86) 100 Room Air 12/15/19 08:45 99 18 122/69 (86) Room Air 12/15/19 08:30 90 18 132/76 (94) Room Air 12/15/19 08:15 91 18 124/73 (90) Room Air 12/15/19 08:00 18 Room Air 12/15/19 07:45 36.9 109 18 121/59 (79) Room Air 12/15/19 07:30 94 18 124/72 (89) Room Air 12/15/19 07:15 96 18 120/67 (84) Room Air 12/15/19 07:00 94 18 125/65 (85) Room Air 12/15/19 06:45 108 18 136/68 (90) Room Air 12/15/19 06:30 98 18 121/70 (87) Room Air 12/15/19 06:15 36.6 96 18 120/73 (89) Room Air 12/15/19 02:35 36.6 109 18 115/72 (86) Room Air 12/14/19 22:35 36.5 112 18 133/65 (87) Room Air 12/14/19 22:15 36.8 133 18 98 Room Air 12/14/19 21:50 36.8 133 18 98 Room Air Labs Laboratory Tests 12/14/19 22:00: Urine Color YELLOW, Urine Clarity CLEAR, Urine pH 6.5, Urine Specific [place] >=1.030, Urine Protein NEGATIVE, Urine Glucose (UA) NEGATIVE, Urine Ketones 2+H, Urine Nitrite NEGATIVE, Urine Bilirubin NEGATIVE, Urine Urobilinogen 1.0, Urine Leukocyte Esterase NEGATIVE, Urine RBC (Auto) NEGATIVE, Urine RBC NONE, Urine WBC 2-5, Urine Squamous Epithelial Cells 2-5, Urine Crystals NONE, Urine Bacteria TRACE, Urine Casts NONE, Urine Mucus MODERATEH, Urine Culture Indicated NO 12/15/19 00:05: White Blood Count 13.1H, Red Blood Count 4.53, Hemoglobin 12.4, Hematocrit 37, Mean Corpuscular Volume 82, Mean Corpuscular Hemoglobin 27, Mean Corpuscular Hemoglobin Concent 33, Red Cell Distribution Width 13.9, Platelet Count 176, Mean Platelet Volume 13.1H, Neutrophils (%) (Auto) 74, Lymphocytes (%) (Auto) 17, Monocytes (%) (Auto) 9, Eosinophils (%) (Auto) 0, Basophils (%) (Auto) 0, Neutrophils # (Auto) 9.6H, Lymphocytes # (Auto) 2.2, Monocytes # (Auto) 1.2H, Eosinophils # (Auto) 0.0, Basophils # (Auto) 0.0 IDALIA ANTUNEZ MD December 15, 2019 19:46
[2019-12-15] MEDS ORDERED: TETANUS,DIPTH,PERTUSS P/F (BOOSTRIX) 0.5 ML VIAL IM ONE (20:00)
[2019-12-15] MEDS ORDERED: MEASLES,MUMPS,RUBELLA 1 EA INJ SQ ONE (20:00)
[2019-12-15] MEDS ORDERED: WITCH HAZEL(TUCKS) 40 EA JAR TOP PRN (20:00)
[2019-12-15] MEDS ORDERED: BENZOCAINE/MENTHOL (DERMOPLAST) 60 ML CAN TP PRN (20:00)
[2019-12-15] MEDS ORDERED: IBUPROFEN 600 MG (MOTRIN) TAB PO ONE (20:41)
[2019-12-15] MEDS ORDERED: LIDOCAINE 1% INJ 20 ML 20 ML VIAL INJ ONE (20:45)
[2019-12-15] MEDS: DOCUSATE SODIUM 100 MG (COLACE) CAP PO SCH (21:00)
[2019-12-15] MEDS: ACETAMINOPHEN 500 MG TAB (TYLENOL) PO SCH (21:12)
--- NOTE | 2019-12-15 21:50 | NUR ---
Pt. ambulated to bathroom with standby assist without difficulty. Positive void noted.
[2019-12-15] MEDS ORDERED: CATHETER FLUSH 10 ML SYR IV SCH (22:00)
--- NOTE | 2019-12-15 22:05 | NUR ---
Pt. transferred to PP room 310 via wheelchair. Accompanied by staff, in open crib, and mother. Pt. oriented to room, call light, thermostat, and dinner menu. PP folder given and explained. Fresh ice water provided.
[2019-12-15] MEDS: IBUPROFEN 600 MG (MOTRIN) TAB PO SCH (22:10)
[2019-12-16 02:30] VITALS: BP 111/72
[2019-12-16] MEDS: IBUPROFEN 600 MG (MOTRIN) TAB PO SCH ×3 (05:27→18:04)
[2019-12-16] MEDS: ACETAMINOPHEN 500 MG TAB (TYLENOL) PO SCH ×3 (05:27→21:34)
[2019-12-16 05:30] VITALS: BP 99/66
[2019-12-16 07:07] LABS: BASOPHILS % (AUTO) 0 % (0-10); EOSINOPHILS % (AUTO) 0 % (0-10); HEMATOCRIT 31 % (35-52); HEMOGLOBIN 10.6 G/DL (11.5-16.0); LYMPHOCYTES # (AUTO) 1.3 X 10^3 (1.0-4.0); LYMPHOCYTES % (AUTO) 9 % (12-44); MEAN CORPUSCULAR HEMOGLOBIN 27 PG (25-34); MEAN CORPUSCULAR HGB CONC 34 G/DL (32-36); MEAN CORPUSCULAR VOLUME 81 FL (80-99); MEAN PLATELET VOLUME 12.9 FL (7.4-10.4); MONOCYTES # (AUTO) 1.6 X 10^3 (0.0-1.0); MONOCYTES % (AUTO) 11 % (0-12); NEUTROPHILS # (AUTO) 11.4 X 10^3 (1.8-7.8); NEUTROPHILS % (AUTO) 79 % (42-75); PLATELET COUNT 151 10^3/uL (130-400); RED CELL DISTRIBUTION WIDTH 13.9 % (10.0-14.5); WHITE BLOOD COUNT 14.4 10^3/uL (4.3-11.0)
--- NOTE | 2019-12-16 10:07 | Discharge Summary ---
Discharge Inst-[facility] Reconcile Patient Problems Problems Reviewed?: Yes Depart Medications New, Converted or Re-Newed RX: Transmitted to Pharmacy Follow Up/Instructions Goal/Follow Up: Dr. Antunez in 6 weeks. Activity Activity: Activity as Tolerated Driving Instructions: You May Drive NO SMOKING: NO SMOKING Nothing Inside Vagina: No Douching, No [place], No Tampons Diet Discharge Diet: No Restrictions Symptoms to Report to : Fever Over 101 Degrees F, Vaginal Bleeding Increase IDALIA ANTUNEZ MD December 16, 2019 10:07
[2019-12-16] MEDS ORDERED: IBUP-844 PO (10:09)
--- NOTE | 2019-12-16 10:12 | Discharge Summary ---
Diagnosis/Chief Complaint Date of Admission December 15, 2019 at 00:26 Date of Discharge December 16, 2019 Admission Diagnosis Admission Diagnosis Term labor at 38 57 wga Discharge Diagnosis Term vaginal delivery at 38 6/7 wga. Problems/Diagnosis: (1) care following vaginal delivery Assessment & Plan: Doing well. Pain and bleeding controlled. Bottle and . Discharge Summary-OBS Procedures None. Discharge Physical Examination Allergies: Coded Allergies: Penicillins (Verified Allergy, Unknown, rash , 11/30/19) Vitals & I&Os Intake and Output 12/16/19 00:00 Intake Total 1500 ml Balance 1500 ml Vital Sign - Last 12Hours Date Time Temp Pulse Resp B/P (MAP) Pulse Ox O2 Delivery O2 Flow Rate FiO2 12/16/19 05:30 36.4 106 18 99/66 (77) 98 12/15/19 21:44 Room Air General Appearance: Alert, Oriented X3 HEENT: Atraumatic Respiratory: Clear to Auscultation Cardiovascular: Regular Rate Abdominal: Other (fundus firm below umbilicus) Extremities: No Edema Skin: No Rashes Neuro: Normal Gait Psych/Mental Status: Mental Status NL Hospital Course Post- course was uneventful. Labs Laboratory Tests 12/16/19 06:25: White Blood Count 14.4H, Red Blood Count 3.88L, Hemoglobin 10.6L, Hematocrit 31L , Mean Corpuscular Volume 81, Mean Corpuscular Hemoglobin 27, Mean Corpuscular Hemoglobin Concent 34, Red Cell Distribution Width 13.9, Platelet Count 151, Mean Platelet Volume 12.9H, Neutrophils (%) (Auto) 79H, Lymphocytes (%) (Auto) 9L, Monocytes (%) (Auto) 11, Eosinophils (%) (Auto) 0, Basophils (%) (Auto) 0, Neutrophils # (Auto) 11.4H, Lymphocytes # (Auto) 1.3, Monocytes # (Auto) 1.6H, Eosinophils # (Auto) 0.0, Basophils # (Auto) 0.0 Discharge Instructions to patient/family Please see electronic discharge instructions given to patient. Discharge Medications Reviewed and agree with Discharge Medication list on patient's Discharge Instruction sheet Clinical Quality Measures DVT/VTE Risk/Contraindication: Risk Factor Score Per Nursin RFS Level Per Nursing on Admit: 2=Moderate IDALIA ANTUNEZ MD December 16, 2019 10:12
[2019-12-16 10:20] VITALS: BP 114/80
--- NOTE | 2019-12-16 10:53 | Anesthesia-Regional Post-Op ---
Regional Patient Condition Mental Status: Alert, Oriented x3 Circulation: Same as Pre-Op Headache: Absent Sensation: Full Recovery Motor Block: Absent Post Op Complications Complications None Follow Up Care/Instructions Patient Instructions None needed. Anesthesia/Patient Condition Patient is doing well, no complaints, stable vital signs, no apparent adverse anesthesia problems. No complications reported per nursing. SONA BRENNER CRNA December 16, 2019 10:53
--- NOTE | 2019-12-16 12:30 | NUR ---
Rhogam given in Right Ventral Gluteal. Pt jason well.
[2019-12-16 15:02] VITALS: BP 120/70
[2019-12-16 20:00] VITALS: BP 119/76
[2019-12-16] MEDS: DOCUSATE SODIUM 100 MG (COLACE) CAP PO SCH (21:33)
[2019-12-16 22:10] VITALS: BP 119/79
== END 2019-12-16 22:10 | disposition home or self-care (01) | DRG 807 ==
LOC: WSo 21:38 → LDRP 21:39 → WSo 12-15 00:26 → LDRP 12-15 22:05
PROVIDERS: ADMIT Family Medicine; ATTEND Family Medicine
PROC: 10E0XZZ Delivery of Products of Conception, External Approach (ICD-10-PCS; principal; 2019-12-15)
PROC: 0KQM0ZZ Repair Perineum Muscle, Open Approach (ICD-10-PCS; 2019-12-15)
DX: O64.0XX0 Obstructed labor due to incomplete rotation of fetal head, not applicable or unspecified (principal); Z37.0 Single live birth; O64.8XX0 Obstructed labor due to other malposition and malpresentation, not applicable or unspecified; O70.1 Second degree perineal laceration during delivery; Z3A.38 38 weeks gestation of pregnancy
CPT/HCPCS: 36415; 81000; 83033; 85025; 86850; 86900; 86901; 99212

== ENCOUNTER → 2020-02-14 | Outpatient (CLI) | payer BC, MEDICAID ==
[~2020-02-14] MED LIST: IBUP-844 PO
== END ==
LOC: LABNPT 15:42
PROVIDERS: ATTEND Family Medicine
DX: J02.9 Acute pharyngitis, unspecified (principal)
CPT/HCPCS: 87070

== ENCOUNTER → 2020-03-31 | Outpatient (CLI) | payer BC, MEDICAID | LOC: LABNPT 14:20 | PROVIDERS: ATTEND Family Medicine | DX: R10.9 Unspecified abdominal pain (principal) | CPT/HCPCS: 87088 ==

== ENCOUNTER → 2021-01-01 | Outpatient (CLI) | payer MEDICAID | LOC: LAB FS 13:03 | PROVIDERS: ATTEND Family Medicine | DX: N92.5 Other specified irregular menstruation (principal) | CPT/HCPCS: 36415; 84702 ==

== ENCOUNTER → 2021-01-19 | Outpatient (CLI) | payer MEDICAID ==
[2021-01-19 11:45] LABS: CLARITY,URINE CLEAR; COLOR,URINE YELLOW; PH,URINE 7.5 (5-9); PROTEIN,URINE NEGATIVE (NEGATIVE)
[2021-01-19 11:46] LABS: BILIRUBIN,URINE NEGATIVE (NEGATIVE); GLUCOSE, URINE (UA) NEGATIVE (NEGATIVE); KETONES,URINE NEGATIVE (NEGATIVE); LEUKOCYTE ESTERASE ,URINE 1+ (NEGATIVE); NITRITE,URINE NEGATIVE (NEGATIVE)
== END ==
LOC: LAB FS 09:19
PROVIDERS: ATTEND Family Medicine
DX: O20.0 Threatened abortion (principal); O20.9 Hemorrhage in early pregnancy, unspecified; Z3A.00 Weeks of gestation of pregnancy not specified
CPT/HCPCS: 36415; 81000; 84702

== ENCOUNTER → 2021-01-21 | Outpatient (CLI) | payer MEDICAID | LOC: LAB FS 07:39 | PROVIDERS: ATTEND Family Medicine | DX: O20.0 Threatened abortion (principal) | CPT/HCPCS: 36415; 84702 ==

== ENCOUNTER → 2021-02-17 | Outpatient (CLI) | payer MEDICAID ==
[2021-02-17 14:12] LABS: HEMATOCRIT 38 % (35-52); HEMOGLOBIN 12.8 G/DL (11.5-16.0); MEAN CORPUSCULAR HEMOGLOBIN 28 PG (25-34); MEAN CORPUSCULAR HGB CONC 34 G/DL (32-36); MEAN CORPUSCULAR VOLUME 82 FL (80-99); MEAN PLATELET VOLUME 11.6 FL (7.4-10.4); PLATELET COUNT 206 10^3/uL (130-400); WHITE BLOOD COUNT 7.8 10^3/uL (4.3-11.0)
== END ==
LOC: LAB FS 13:47
PROVIDERS: ATTEND Family Medicine
DX: Z34.91 Encounter for supervision of normal pregnancy, unspecified, first trimester (principal); Z3A.00 Weeks of gestation of pregnancy not specified
CPT/HCPCS: 36415; 85027; 86592; 86703; 86762; 86850; 86900; 86901; 87088; 87340

== ENCOUNTER → 2021-04-23 | Outpatient (CLI) | payer MEDICAID ==
--- NOTE | 2021-04-23 09:16 | Diagnostic Imaging Report ---
INDICATION: Routine care TECHNIQUE: Multiple real-time grayscale images were obtained over the gravid uterus. COMPARISON: None FINDINGS: There is broderick intrauterine gestation in transverse presentation. Normal amount of amniotic fluid is seen. The posterior placenta is low lying without definite previa. cardiac activity is present with a rate of 143 bpm. Cervical length is 5 cm. No anomaly is identified although facial features and mediastinal structures are not well delineated. biometry indicates gestational age of 20 weeks. Biometrical measurements are as follows: Biparietal 4.54 cm, age 19 weeks 6 days. Head circumference 17.10 cm, age 19 weeks 5 days. Abdominal circumference 14.78 cm, age 20 weeks 1 days. Femur length 3.14 cm, age 19 weeks 6 days. Sonographic estimate age: 20 weeks 0 days. Sonographic estimated date of delivery: 09/10/21. Estimated Weight: 319 gm (+/- 47 gm). LMP percentile: 15%. heart rate: 143 beats per minute. number: 1 of 1. IMPRESSION: Unremarkable intrauterine gestation with estimated age of 20 weeks. Sonographic EDC is 09/10/2021. Posterior placenta is low-lying without definite previa. This could be further evaluated on additional imaging later in the 2nd trimester as well as additional attempted assessment of facial and mediastinal structures. Dictated by: Dictated on workstation # [id number]
== END ==
LOC: RAD FS 07:45
PROVIDERS: ATTEND Family Medicine
DX: Z34.92 Encounter for supervision of normal pregnancy, unspecified, second trimester (principal); Z3A.20 20 weeks gestation of pregnancy
CPT/HCPCS: 76805

== ENCOUNTER → 2021-05-21 | Outpatient (CLI) | payer MEDICAID | LOC: LABNPT 15:36 | PROVIDERS: ATTEND Family Medicine | DX: J02.9 Acute pharyngitis, unspecified (principal) | CPT/HCPCS: 87070 ==

== ENCOUNTER → 2021-07-22 | Outpatient (CLI) | payer MEDICAID | LOC: LAB FS 15:16 | PROVIDERS: ATTEND Registered Nurse Emergency | DX: R07.0 Pain in throat (principal) | CPT/HCPCS: 87070 ==

== ENCOUNTER 2021-09-03 06:25 | Inpatient (IN) | payer MEDICAID ==
[2021-09-03] VITALS (78 sets, daily range): BP systolic 89–138; BP diastolic 51–89
[~2021-09-03] VITALS: Ht 157.5 cm; Wt 105.1 kg
[2021-09-03] MEDS ORDERED: MINERAL OIL CONCENTRATE 99.9% 15 ML UDC TOP PRN (06:45)
[2021-09-03] MEDS ORDERED: OXYTOCIN PRE-MIX DRIP 500 ML IV SCH (06:45)
[2021-09-03] MEDS ORDERED: CLINDAMYCIN 600 MG/50 ML IVPB 0 ML IV ONE (07:39)
[2021-09-03] MEDS ORDERED: CLINDAMYCIN 900 MG/50 ML IVPB 50 ML IV ONE (07:41)
[2021-09-03] MEDS: D5 LR IV SOLUTION 1,000 ML IV SCH ×2 (07:42→16:05)
[2021-09-03] MEDS: CLINDAMYCIN 900 MG/50 ML IVPB 50 ML IV SCH ×2 (07:42→15:52)
[2021-09-03 08:07] LABS: BASOPHILS % (AUTO) 0 % (0-10); EOSINOPHILS % (AUTO) 0 % (0-10); HEMATOCRIT 36 % (35-52); HEMOGLOBIN 11.8 g/dL (11.5-16.0); LYMPHOCYTES # (AUTO) 1.7 10^3/uL (1.0-4.0); LYMPHOCYTES % (AUTO) 20 % (12-44); MEAN CORPUSCULAR HEMOGLOBIN 27 pg (25-34); MEAN CORPUSCULAR HGB CONC 33 g/dL (32-36); MEAN CORPUSCULAR VOLUME 81 fL (80-99); MEAN PLATELET VOLUME 12.6 fL (9.0-12.2); MONOCYTES # (AUTO) 0.6 10^3/uL (0.0-1.0); MONOCYTES % (AUTO) 8 % (0-12); NEUTROPHILS % (AUTO) 70 % (42-75); PLATELET COUNT 169 10^3/uL (130-400); WHITE BLOOD COUNT 8.5 10^3/uL (4.3-11.0)
[2021-09-03] MEDS ORDERED: LACTATED RINGERS 1,000 ML IV ONE ×3 (08:21→10:00)
[2021-09-03] MEDS ORDERED: fentaNYL 2 mcg/ml BUPIVA 0.125 100 ML ONE (08:21)
--- NOTE | 2021-09-03 08:35 | History & Physical-OB ---
OB - Chief Complaint & HPI Date/Time Date of Admission: Date of Admission: Sep 03, 2021 at 06:25 Date seen by a Provider: Sep 03, 2021 Time Seen by a Provider: 08:10 Chief Complaint/History OB-Reason for Admission/Chief: Induction of Labor Hx : 3 Hx Para: 2 Expected Date of Delivery: Sep 10, 2021 Gestational Age in Weeks: 39 Gestational Age in Days: 0 Admission Nurse Assessment Rev: Yes History of Labs B neg Antibody neg RI RPR NR HBsAg NR HIV NR GC neg GBS pos Allergies and Home Medications Allergies Coded Allergies: Penicillins (Verified Allergy, Unknown, rash , 11/30/19) Patient Home Medication List Home Medication List Reviewed: Yes Discontinued Medications Ibuprofen (Ibu) 600 Mg Tablet, 600 MG PO Q6HR PRN for PAIN-MODERATE (5-7) Discontinued Reason: No Longer Taking Prescribed by: IDALIA ANTUNEZ on 12/16/19 1009 Last Action: Discontinued OB - History Hx of Present Care: Yes Ultrasounds: Normal mid trimester US Obstetrical Complications: None Medical Complications: None Delivery History Adverse Rxn to Tranfusion: No Patient Past Medical History previously healthy Social History/Family History 2nd Hand Smoke Exposure: No Immunizations Influenza Vaccine Up-to-Date: No; Not Current OB - Admission Exam Physical Exam Vitals: Vital Signs 09/03/21 06:55 Temp 36.7 Pulse 131 Resp 20 Pulse Ox 97 O2 Delivery Room Air HEENT: NCAT Heart: Rhythm Normal Lungs: Clear Abdomen: Gravid Extremities: Normal Reflexes: Normal Cervical Dilatation: 3cm Effacement: 75% Station: -2 Membranes: Intact Heart Rate: 130's Accelerations: Accelerations Present Decelerations: No Decelerations Short Term Variability: Present Residential Variability: Average (6-25) Contractions on Admission: 6-10 Minutes Apart Intensity: Mild [place] Scoring Tool (Modified) Dilation (cm): 3-4cm (2) Effacement (%): 51-79% (2) Descent/Station: -2 (1) Cervix Consistency: Soft (2) Cervix Position: Anterior (2) Add 1 point for: Each previous vaginal delivery (1) [place] Score: 11 Labs Laboratory Tests Test 09/03/21 07:25 Range/Units White Blood Count 8.5 4.3-11.0 10^3/uL Red Blood Count 4.42 3.80-5.11 10^6/uL Hemoglobin 11.8 11.5-16.0 g/dL Hematocrit 36 35-52 % Mean Corpuscular Volume 81 80-99 fL Mean Corpuscular Hemoglobin 27 25-34 pg Mean Corpuscular Hemoglobin Concent 33 32-36 g/dL Red Cell Distribution Width 14.6 H 10.0-14.5 % Platelet Count 169 130-400 10^3/uL Mean Platelet Volume 12.6 H 9.0-12.2 fL Immature Granulocyte % (Auto) 2 % Neutrophils (%) (Auto) 70 42-75 % Lymphocytes (%) (Auto) 20 12-44 % Monocytes (%) (Auto) 8 0-12 % Eosinophils (%) (Auto) 0 0-10 % Basophils (%) (Auto) 0 0-10 % Neutrophils # (Auto) 6.0 1.8-7.8 10^3/uL Lymphocytes # (Auto) 1.7 1.0-4.0 10^3/uL Monocytes # (Auto) 0.6 0.0-1.0 10^3/uL Eosinophils # (Auto) 0.0 0.0-0.3 10^3/uL Basophils # (Auto) 0.0 0.0-0.1 10^3/uL Immature Granulocyte # (Auto) 0.2 H 0.0-0.1 10^3/uL OB - Assessment/Plan/Diagnosis Assessment Assessment: induction of labor Admission Dx 26 yo @ 39 weeks Elective IOL GBS pos Admission Status: Inpatient Order (span 2 midnights) Reason for Inpatient Admission: IOL at 39 weeks Plan Plan: Induction Induction Method: JUAN MIGUEL MOULTON DO Sep 03, 2021 08:35
[2021-09-03] MEDS ORDERED: BUPIVACAINE 0.25% 30 ML (SENSORCAINE) VIAL ONE (09:24)
[2021-09-03] MEDS ORDERED: fentaNYL INJ 100 MCG/2 ML AMP ONE (09:25)
[2021-09-03] MEDS: EPIDURAL (fentaNYL 2 MCG/ML BUPIVA 0.125%)100 ML BAG EPI PRN ×2 (09:50→16:05)
[2021-09-03] MEDS ORDERED: ONDANSETRON 4 MG/2 ML (SDV) Z0FRAN IV PRN (10:00)
[2021-09-03] MEDS ORDERED: fentaNYL INJ 100 MCG/2 ML AMP INJ ONE (10:00)
[2021-09-03] MEDS ORDERED: NALOXONE 0.4 MG/ML 1 ML (NARCAN) VIAL IV PRN ×2 (10:00→21:45)
[2021-09-03] MEDS: CATHETER FLUSH 10 ML SYR IV SCH (20:34)
[2021-09-03] MEDS ORDERED: LIDOCAINE/EPI 2% 1:200,00 (XYLOCAINE) 10 ML VIAL ONE (20:57)
[2021-09-03] MEDS ORDERED: MEASLES,MUMPS,RUBELLA 1 EA INJ SQ ONE (21:45)
[2021-09-03] MEDS: OXYTOCIN PRE-MIX DRIP 500 ML IV SCH (21:45)
[2021-09-03] MEDS ORDERED: TETANUS,DIPTH,PERTUSS P/F (BOOSTRIX) 0.5 ML VIAL IM ONE (21:45)
--- NOTE | 2021-09-03 21:49 | OB Labor & Delivery Record ---
L&D History Date of Service Date of Service: Sep 03, 2021 History Expected Date of Delivery: Sep 10, 2021 Gestational Age in Weeks: 39 Hx : 3 Hx Para: 2 Complications Events: Routine care Operative Indications (Cesarea: N/A-Vaginal Delivery Intrapartal Events: None L&D Stage1 Stage One Onset of Labor - Date: Sep 03, 2021 Monitors and Tracing Monitor Mode: Internal Heart Rate: 140 Station: -2 Vital Signs VS - Last 72 Hours, by Label 09/03/21 09/03/21 09/03/21 09/03/21 06:55 07:14 07:55 08:15 Temp 36.7 Pulse 131 126 114 111 Resp 20 18 18 18 B/P (MAP) 122/75 (91) 105/65 (78) 118/71 (87) Pulse Ox 97 97 O2 Delivery Room Air Room Air Room Air Room Air 09/03/21 09/03/21 09/03/21 09/03/21 08:35 08:54 09:08 09:22 Temp 36.7 Pulse 110 102 106 105 Resp 18 18 18 18 B/P (MAP) 122/58 (79) 124/77 (93) 121/73 (89) 118/69 (85) O2 Delivery Room Air Room Air Room Air Room Air 09/03/21 09/03/21 09/03/21 09/03/21 09:33 09:36 09:39 09:42 Pulse 123 118 117 117 Resp 18 18 18 18 B/P (MAP) 120/74 (89) 124/83 (97) 124/82 (96) 125/68 (87) Pulse Ox 98 100 99 O2 Delivery Room Air Room Air Room Air Room Air 09/03/21 09/03/21 09/03/21 09/03/21 09:47 09:51 09:53 09:57 Pulse 124 116 122 110 Resp 18 18 18 18 B/P (MAP) 121/69 (86) 120/71 (87) 118/68 (85) 120/66 (84) Pulse Ox 97 97 97 O2 Delivery Room Air Room Air Room Air Room Air 09/03/21 09/03/21 09/03/21 09/03/21 10:00 10:03 10:07 10:15 Pulse 108 105 108 94 Resp 18 18 18 18 B/P (MAP) 113/64 (80) 119/68 (85) 115/60 (78) 108/62 (77) Pulse Ox 98 98 97 O2 Delivery Room Air Room Air Room Air Room Air 09/03/21 09/03/21 09/03/21 09/03/21 10:20 10:25 10:30 10:35 Pulse 100 99 95 100 Resp 18 18 18 18 B/P (MAP) 104/58 (73) 109/60 (76) 106/55 (72) 107/52 (70) Pulse Ox 100 98 99 98 O2 Delivery Room Air Room Air Room Air Room Air 09/03/21 09/03/21 09/03/21 09/03/21 10:40 10:45 10:50 10:55 Temp 36.4 Pulse 99 105 112 125 Resp 18 18 18 18 B/P (MAP) 106/53 (70) 104/56 (72) 117/52 (73) 107/59 (75) Pulse Ox 99 99 100 99 O2 Delivery Room Air Room Air Room Air Room Air 09/03/21 09/03/21 09/03/21 09/03/21 11:17 11:32 11:46 11:56 Pulse 123 111 112 112 Resp 18 18 18 18 B/P (MAP) 111/64 (80) 120/58 (78) 116/65 (82) 106/55 (72) Pulse Ox 99 99 100 100 O2 Delivery Room Air Room Air Room Air Room Air 09/03/21 09/03/21 09/03/21 09/03/21 12:04 12:19 12:32 12:47 Pulse 117 110 107 118 Resp 18 18 18 18 B/P (MAP) 114/56 (75) 129/66 (87) 115/64 (81) 113/67 (82) Pulse Ox 97 99 98 98 O2 Delivery Room Air Room Air Room Air Room Air 09/03/21 09/03/21 09/03/21 09/03/21 13:03 13:16 13:31 13:47 Pulse 107 106 100 108 Resp 18 18 18 18 B/P (MAP) 125/71 (89) 122/78 (93) 118/77 (91) 118/73 (88) Pulse Ox 98 99 97 99 O2 Delivery Room Air Room Air Room Air Room Air 09/03/21 09/03/21 09/03/21/27/22 14:02 14:11 14:17 14:31 Temp 36.6 Pulse 107 117 111 Resp 18 18 18 B/P (MAP) 128/81 (97) 123/75 (91) 114/71 (85) Pulse Ox 99 99 98 O2 Delivery Room Air Room Air Room Air 09/03/21 09/03/21 09/03/21 09/03/21 14:47 15:03 15:17 15:31 Pulse 118 129 109 120 Resp 18 18 18 18 B/P (MAP) 117/73 (88) 125/73 (90) 131/69 (89) 117/66 (83) Pulse Ox 98 99 99 98 O2 Delivery Room Air Room Air Room Air Room Air 09/03/21 09/03/21 09/03/21 09/03/21 15:48 16:04 16:17 16:32 Pulse 112 112 106 104 Resp 18 18 18 18 B/P (MAP) 116/58 (77) 124/64 (84) 99/51 (67) 89/53 (65) Pulse Ox 99 97 99 99 O2 Delivery Room Air Room Air Room Air Room Air 09/03/21 09/03/21 09/03/21 09/03/21 16:46 18:18 18:30 18:45 Pulse 109 113 108 115 Resp 18 18 18 18 B/P (MAP) 96/53 (67) 122/79 (93) 120/76 (91) 121/75 (90) Pulse Ox 99 99 99 99 O2 Delivery Room Air Room Air Room Air 09/03/21 09/03/21 19:00 19:12 Temp 36.9 Pulse 102 Resp 18 B/P (MAP) 117/71 (86) Pulse Ox 98 O2 Delivery Room Air Rupture of Membranes Spontaneous Ruture of Membrane: No Amniotic Membrane Rupture Time: 811 Amniotic Membrane Fluid Desc.: Clear Induction/Anesthesia Epidural Cath Placement - Time: 940 Progress/Notes Patient admitted for 39 week elective IOL. AROM performed at admission and started on Cleocin for GBS prophylaxis. She progressed with Pitocin augmentation, and received an epidural. She progressed to complete and + 2 station. L&D Stage2 Stage Two Stage II Date: Sep 03, 2021 Monitors and Tracing Monitor Mode: Internal Heart Rate: 140 Position: Right Occiput Anterior Presentation: Vertex Cord Descript/Complications Cord Vessel Description: 3 Vessels Complications nuchal cord reduced x 2 Delivery Type Infant Delivery Method: Spontaneous Vaginal Anterior Shoulder: Right Episiotomy/Perineal Laceration Laceraction(s)/Extensions: Yes Degree (describe repair) Right labial, Clitoral from prepuce down to supra urethral. All repaired using 3-0 rapide in usual fashion Condition of Delivery 1 minute Comment: 9 5 minute Comment: 9 Notes Live male infant weight 7lbs 2 oz Condition of Infant Condition of : Living Exam: No Observed Abnormalities Resuscitation Resuscitation: N/A - Spontaneous Resp L&D Stage3 Stage Three Stage III Date: Sep 03, 2021 Pictocin Pitocin Administration mu/min: 8 Pitocin ml/hr: 8 Pitocin Administration Comment: 30 mu wide open at delivery of placetna Placenta Delivery Placenta Delivery: Spontaneous Delivery Summary Summary Estimated blood loss (mL): 350 Attending at delivery: Juan Miguel Ang DO Condition of Delivery Examined: Cervix Examined, Uterus Explored Post Hemorrhage: No Condition of Mother stable Condition of (s) stable JUAN MIGUEL ANG DO Sep 03, 2021 21:49
--- NOTE | 2021-09-03 21:52 | Discharge Inst-Women's Service ---
Discharge Inst-Women's Serv Depart Medication/Instructions New, Converted or Re-Newed RX: Transmitted to Pharmacy Final Diagnosis PPD 2 NVD Problems Reviewed?: Yes Consults/Follow Up Additional Follow Up: Yes Orders/Referrals Dr. Ang or William in 6 weeks Activity Activity: Activity as Tolerated Driving Instructions: You May Drive NO SMOKING: NO SMOKING Nothing Inside Vagina: No Douching Diet Discharge Diet: No Restrictions Symptoms to Report to : Bleeding Excessive, Pain Increased, Fever Over 101 Degrees F, Vaginal Bleeding Increase, Questions/Concerns For Any Problems or Questions: Contact Your Physician JUAN MIGUEL ANG DO Sep 03, 2021 21:52
[2021-09-03] MEDS ORDERED: DIBU30OI TOP (21:54)
[2021-09-03] MEDS ORDERED: DOCU100C37 PO (21:54)
[2021-09-03] MEDS ORDERED: FERR325T24 PO (21:54)
[2021-09-03] MEDS ORDERED: ACHD5005 PO (21:54)
[2021-09-03] MEDS ORDERED: BENZ78AE5 TP (21:54)
[2021-09-03] MEDS ORDERED: IBUP-844 PO (21:54)
[2021-09-03] MEDS ORDERED: CATHETER FLUSH 10 ML SYR IV SCH (22:00)
[2021-09-04] VITALS: BP 110/62
[2021-09-04] MEDS: CATHETER FLUSH 10 ML SYR IV SCH (00:10)
[2021-09-04 00:40] VITALS: BP 116/56
[2021-09-04] MEDS: IBUPROFEN 600 MG (MOTRIN) TAB PO SCH ×5 (00:47→23:34)
[2021-09-04] MEDS: BENZOCAINE/MENTHOL (DERMOPLAST) 56 ML CAN TP PRN (00:48)
[2021-09-04] MEDS: OXYTOCIN PRE-MIX DRIP 500 ML IV SCH (00:49)
[2021-09-04] MEDS: DIBUCAINE 1% OINTMENT 30 GM TUBE TOP PRN ×2 (01:06→17:42)
[2021-09-04] MEDS: WITCH HAZEL(TUCKS) 40 EA JAR TOP PRN ×2 (01:06→17:42)
[2021-09-04 04:00] VITALS: BP 110/62
[2021-09-04 06:08] LABS: BASOPHILS % (AUTO) 0 % (0-10); EOSINOPHILS % (AUTO) 0 % (0-10); HEMATOCRIT 31 % (35-52); HEMOGLOBIN 10.1 g/dL (11.5-16.0); LYMPHOCYTES % (AUTO) 16 % (12-44); MEAN CORPUSCULAR HEMOGLOBIN 27 pg (25-34); MEAN CORPUSCULAR HGB CONC 33 g/dL (32-36); MEAN CORPUSCULAR VOLUME 83 fL (80-99); MEAN PLATELET VOLUME 12.4 fL (9.0-12.2); MONOCYTES # (AUTO) 1.1 10^3/uL (0.0-1.0); MONOCYTES % (AUTO) 9 % (0-12); NEUTROPHILS # (AUTO) 9.6 10^3/uL (1.8-7.8); NEUTROPHILS % (AUTO) 75 % (42-75); PLATELET COUNT 177 10^3/uL (130-400); WHITE BLOOD COUNT 12.9 10^3/uL (4.3-11.0)
[2021-09-04] MEDS: PRENATAL VITAMIN 1 EA TAB PO SCH (07:55)
[2021-09-04] MEDS: HYDROcodone/APAP 5 MG/325 MG (LORTAB) TAB PO PRN ×2 (07:55→15:30)
[2021-09-04] MEDS: FERROUS SULF 325 MG (IRON) TAB PO SCH (07:55)
[2021-09-04] MEDS: DOCUSATE SODIUM 100 MG (COLACE) CAP PO SCH ×2 (07:55→22:05)
[2021-09-04 07:57] VITALS: BP 109/58
--- NOTE | 2021-09-04 08:10 | Postpartum Progress Note ---
Note Note Day # 1 Subjective: Patient is without complaints. Ambulating, voiding. Tolerating a regular diet without nausea or vomiting. Normal lochia. Pain is well controlled with oral pain medications. Objective: Physical Exam: General - Alert and oriented, no apparent distress Abdomen - Soft, appropriately tender to palpation, non-distended, fundus firm at umbilicus Extremities - no edema, negative Joey's bilaterally Assessment: Post- day # 1, status post vaginal delivery. Recovering well, hemodynamically stable Acute blood loss anemia Plan: Routine care. Encourage breast feeding. Encourage ambulation. Ferrous sulfate supplementation. Plan for discharge tomorrow AM Vitals - Labs Vital Signs - I&O Vital Signs Date Time Temp Pulse Resp B/P (MAP) Pulse Ox O2 Delivery O2 Flow Rate FiO2 09/04/21 04:00 36.4 98 18 110/62 (78) 98 Room Air 09/04/21 00:40 36.6 117 18 116/56 (76) Room Air 09/04/21 00:00 114 18 110/62 (78) Room Air 09/03/21 23:30 36.4 112 18 138/65 (89) Room Air 09/03/21 23:00 108 18 127/63 (84) Room Air 09/03/21 22:30 36.2 96 18 114/65 (81) 100 Room Air 09/03/21 22:15 100 18 119/56 (77) 100 Room Air 09/03/21 22:00 36.0 100 18 125/56 (79) 100 Room Air 09/03/21 21:45 106 18 117/58 (77) 100 Room Air 09/03/21 21:30 36.2 105 18 132/72 (92) Room Air 09/03/21 21:15 36.0 117 18 129/63 (85) Room Air 09/03/21 21:00 104 18 136/73 (94) 100 Room Air 09/03/21 20:45 103 18 125/60 (81) 98 Room Air 09/03/21 20:30 113 18 109/65 (80) 98 Room Air 09/03/21 20:25 116 18 117/71 (86) 97 Room Air 09/03/21 20:20 139 18 112/70 (84) 96 Room Air 09/03/21 20:15 130 18 111/63 (79) 97 Room Air 09/03/21 20:10 133 18 112/65 (81) 96 Room Air 09/03/21 20:05 131 18 117/75 (89) 96 Room Air 09/03/21 20:00 130 18 116/58 (77) 98 Room Air 09/03/21 19:55 129 18 118/58 (78) 97 Room Air 09/03/21 19:50 118 18 114/57 (76) 97 Room Air 09/03/21 19:45 36.4 125 18 117/58 (77) 97 Room Air 09/03/21 19:30 120 18 120/60 (80) 97 Room Air 09/03/21 19:15 115 18 123/64 (83) 97 Room Air 09/03/21 19:12 36.9 09/03/21 19:00 102 18 117/71 (86) 98 Room Air 09/03/21 18:45 115 18 121/75 (90) 99 Room Air 09/03/21 18:30 108 18 120/76 (91) 99 Room Air 09/03/21 18:18 113 18 122/79 (93) 99 Room Air 09/03/21 16:46 109 18 96/53 (67) 99 09/03/21 16:32 104 18 89/53 (65) 99 Room Air 09/03/21 16:17 106 18 99/51 (67) 99 Room Air 09/03/21 16:04 112 18 124/64 (84) 97 Room Air 09/03/21 15:48 112 18 116/58 (77) 99 Room Air 09/03/21 15:31 120 18 117/66 (83) 98 Room Air 09/03/21 15:17 109 18 131/69 (89) 99 Room Air 09/03/21 15:03 129 18 125/73 (90) 99 Room Air 09/03/21 14:47 118 18 117/73 (88) 98 Room Air 09/03/21 14:31 111 18 114/71 (85) 98 Room Air 09/03/21 14:17 117 18 123/75 (91) 99 Room Air 09/03/21 14:11 36.6 09/03/21 14:02 107 18 128/81 (97) 99 Room Air 09/03/21 13:47 108 18 118/73 (88) 99 Room Air 09/03/21 13:31 100 18 118/77 (91) 97 Room Air 09/03/21 13:16 106 18 122/78 (93) 99 Room Air 09/03/21 13:03 107 18 125/71 (89) 98 Room Air 09/03/21 12:47 118 18 113/67 (82) 98 Room Air 09/03/21 12:32 107 18 115/64 (81) 98 Room Air 09/03/21 12:19 110 18 129/66 (87) 99 Room Air 09/03/21 12:04 117 18 114/56 (75) 97 Room Air 09/03/21 11:56 112 18 106/55 (72) 100 Room Air 09/03/21 11:46 112 18 116/65 (82) 100 Room Air 09/03/21 11:32 111 18 120/58 (78) 99 Room Air 09/03/21 11:17 123 18 111/64 (80) 99 Room Air 09/03/21 10:55 125 18 107/59 (75) 99 Room Air 09/03/21 10:50 112 18 117/52 (73) 100 Room Air 09/03/21 10:45 36.4 105 18 104/56 (72) 99 Room Air 09/03/21 10:40 99 18 106/53 (70) 99 Room Air 09/03/21 10:35 100 18 107/52 (70) 98 Room Air 09/03/21 10:30 95 18 106/55 (72) 99 Room Air 09/03/21 10:25 99 18 109/60 (76) 98 Room Air 09/03/21 10:20 100 18 104/58 (73) 100 Room Air 09/03/21 10:15 94 18 108/62 (77) 97 Room Air 09/03/21 10:07 108 18 115/60 (78) Room Air 09/03/21 10:03 105 18 119/68 (85) 98 Room Air 09/03/21 10:00 108 18 113/64 (80) 98 Room Air 09/03/21 09:57 110 18 120/66 (84) Room Air 09/03/21 09:53 122 18 118/68 (85) 97 Room Air 09/03/21 09:51 116 18 120/71 (87) 97 Room Air 09/03/21 09:47 124 18 121/69 (86) 97 Room Air 09/03/21 09:42 117 18 125/68 (87) 99 Room Air 09/03/21 09:39 117 18 124/82 (96) 100 Room Air 09/03/21 09:36 118 18 124/83 (97) Room Air 09/03/21 09:33 123 18 120/74 (89) 98 Room Air 09/03/21 09:22 105 18 118/69 (85) Room Air 09/03/21 09:08 36.7 106 18 121/73 (89) Room Air 09/03/21 08:54 102 18 124/77 (93) Room Air 09/03/21 08:35 110 18 122/58 (79) Room Air 09/03/21 08:15 111 18 118/71 (87) Room Air I & O 09/04/21 07:00 Intake Total 4000 ml Output Total 0 ml Balance 4000 ml Labs Laboratory Tests 09/04/21 05:28: White Blood Count 12.9H, Red Blood Count 3.74L, Hemoglobin 10.1L, Hematocrit 31L , Mean Corpuscular Volume 83, Mean Corpuscular Hemoglobin 27, Mean Corpuscular Hemoglobin Concent 33, Red Cell Distribution Width 14.8H, Platelet Count 177, Mean Platelet Volume 12.4H, Immature Granulocyte % (Auto) 1, Neutrophils (%) (Auto) 75, Lymphocytes (%) (Auto) 16, Monocytes (%) (Auto) 9, Eosinophils (%) (Auto) 0, Basophils (%) (Auto) 0, Neutrophils # (Auto) 9.6H, Lymphocytes # (Auto) 2.0, Monocytes # (Auto) 1.1H, Eosinophils # (Auto) 0.0, Basophils # (Auto) 0.0, Immature Granulocyte # (Auto) 0.1 ALMA DELIA CLINTON APRN Sep 04, 2021 08:10
--- NOTE | 2021-09-04 14:54 | Anesthesia-Regional Post-Op ---
Regional Patient Condition Mental Status: Alert, Oriented x3 Circulation: Same as Pre-Op Headache: Absent Sensation: Full Recovery Motor Block: Absent Post Op Complications Complications None Follow Up Care/Instructions Patient Instructions None needed. Anesthesia/Patient Condition Patient is doing well, she does complain of a sore back, which is not unexpected. She has stable vital signs, no apparent adverse anesthesia problems. SEDA ELIZONDO DO Sep 04, 2021 14:53
[2021-09-04 15:30] VITALS: BP 110/76
[2021-09-04 22:05] VITALS: BP 103/63
[2021-09-05 04:00] VITALS: BP 124/73
[2021-09-05] MEDS: IBUPROFEN 600 MG (MOTRIN) TAB PO SCH ×2 (05:25→11:54)
[2021-09-05] MEDS: DOCUSATE SODIUM 100 MG (COLACE) CAP PO SCH (08:07)
[2021-09-05] MEDS: FERROUS SULF 325 MG (IRON) TAB PO SCH (08:07)
[2021-09-05] MEDS: PRENATAL VITAMIN 1 EA TAB PO SCH (08:07)
[2021-09-05 08:09] VITALS: BP 127/73
[2021-09-05] MEDS: WITCH HAZEL(TUCKS) 40 EA JAR TOP PRN (08:25)
[2021-09-05] MEDS: BENZOCAINE/MENTHOL (DERMOPLAST) 56 ML CAN TP PRN (08:25)
[2021-09-05] MEDS: HYDROcodone/APAP 5 MG/325 MG (LORTAB) TAB PO PRN ×2 (11:54→15:29)
--- NOTE | 2021-09-05 12:22 | Progress Note ---
JOYA FREDERICK 09/05/21 1222: Subjective Date Seen by a Provider: Sep 05, 2021 Time Seen by a Provider: 12:21 Subjective/Events-last exam 26yo F presents for s/p vaginal delivery day #2. Patient reports some lower back pain. Ambulating, voiding well. Regular diet. Normal lochia. Denies any fever, c hills, nausea, vomiting, or diarrhea. Breast feeding. Objective Exam Last Set of Vital Signs Vital Signs Date Time Temp Pulse Resp B/P (MAP) Pulse Ox O2 Delivery O2 Flow Rate FiO2 09/05/21 08:09 36.1 80 18 127/73 (91) 99 Room Air Capillary Refill : Less Than 3 Seconds I&O Intake and Output 09/05/21 00:00 Intake Total 1500 ml Balance 1500 ml Intake IV Total 1500 ml General: Alert, Oriented X3 HEENT: EOMI Neck: Supple Lungs: Clear to Auscultation, Normal Air Movement Heart: Regular Rate Abdomen: Soft, No Tenderness Extremities: No Tenderness/Swelling Skin: No Rashes Neuro: Normal Speech Psych/Mental Status: Mental Status NL, Mood NL Assessment/Plan Assessment/Plan Assess & Plan/Chief Complaint s/p vaginal delivery day #2 09/05/2021: Routine post care Encourage breasting feeding Encourage ambulation Possible discharge today Follow up in clinic 6 weeks or sooner if symptoms worsen LEANDER TEJADA DO 09/08/21 1434: Supervisory-Addendum Brief Verification & Attestation Participated in pt care: history, physical Personally performed: supervision of care Care discussed with: Medical Student Procedures: n/a I have seen patient and agree with assessment and plan. JOYA FREDERICK Sep 05, 2021 12:22 LEANDER TEJADA DO Sep 08, 2021 14:34
== END 2021-09-05 15:55 | disposition home or self-care (01) | DRG 806 ==
LOC: LDRP 06:25
PROVIDERS: ADMIT Obstetrics & Gynecology; ATTEND Obstetrics & Gynecology
PROC: 10E0XZZ Delivery of Products of Conception, External Approach (ICD-10-PCS; principal; 2021-09-03)
PROC: 10907ZC Drainage of Amniotic Fluid, Therapeutic from Products of Conception, Via Natural or Artificial Opening (ICD-10-PCS; 2021-09-03)
PROC: 0UQMXZZ Repair Vulva, External Approach (ICD-10-PCS; 2021-09-03)
DX: O99.824 Streptococcus B carrier state complicating childbirth (principal); D62 Acute posthemorrhagic anemia; Z37.0 Single live birth; Z3A.39 39 weeks gestation of pregnancy; O69.81X0 Labor and delivery complicated by cord around neck, without compression, not applicable or unspecified; O90.81 Anemia of the puerperium
CPT/HCPCS: 36415; 83033; 85025; 86850; 86900; 86901